=== PATIENT | male | born 1995 | race African-American/Black ===

== ENCOUNTER 2019-02-14 17:14 | Emergency (ER) | payer MEDICAID, OTHER ==
[~2019-02-14] VITALS: Ht 177.8 cm; Wt 100.0 kg
[2019-02-14] MEDS ORDERED: RACEPINEPHRINE HCL 2.25% 0.5 ML NEB SOLUTION NEB ONE (17:58)
[2019-02-14] MEDS ORDERED: IBUPROFEN 600 MG TABLET PO ONE (21:45)
[2019-02-14 23:02] VITALS: BP 129/85
== END 2019-02-14 23:04 | disposition home or self-care (01) ==
LOC: EMS 17:18
DX: S13.4XXA Sprain of ligaments of cervical spine, initial encounter (principal); M25.512 Pain in left shoulder; V49.9XXA Car occupant (driver) (passenger) injured in unspecified traffic accident, initial encounter; Y93.89 Activity, other specified; Y92.89 Other specified places as the place of occurrence of the external cause; Y99.8 Other external cause status
CPT/HCPCS: 70450; 72125